=== PATIENT | female | born 1950 | race Caucasian/White ===

== ENCOUNTER 2017-01-29 07:01 | Day surgery (SDC) | payer MEDICARE, BC ==
[2017-01-28 16:06] LABS: BASOPHILS 0.4 % (0.0-2.0); EOSINOPHILS 3.6 % (0-7); HEMATOCRIT 38.2 % (36.0-48.0); HEMOGLOBIN 12.2 g/dL (12-16); IMMATURE GRANULOCYTES 0.9 % (0-5); LYMPHOCYTES 30.2 % (15-50); MCH 29.5 pg (26.0-34.0); MCHC 31.9 g/dL (31.0-37.0); MCV 92.3 fL (80.0-100.0); MEAN PLATELET VOLUME 10.5 fL (7.4-10.4); MONOCYTES 8.1 % (2-11); NEUTROPHILS 56.8 % (40-80); RBC 4.14 10x6/uL (4.00-5.40); RDW 13.2 % (11.5-14.5); WBC 5.6 10x3/uL (4.8-10.8)
[2017-01-28 16:24] LABS: PLATELET COUNT 227 10x3/uL (130-400)
[~2017-01-29] VITALS: Ht 157.5 cm; Wt 65.8 kg
--- NOTE | ~2017-01-29 | OP ---
PATIENT NAME: MARJAN BAEZA MEDICAL RECORD: [id number] :46 LOCATION:D.OPS ADMISSION DATE: SURGEON: CHRISTIAN MANCERA DPM DATE OF OPERATION: 01/29/2017 PREOPERATIVE DIAGNOSIS: Neuroma, right second and third interspace. POSTOPERATIVE DIAGNOSIS: Neuroma, right second and third interspace. PROCEDURE: Neurectomy, right second and third interspace. ANESTHESIA: Local with IV sedation utilizing lidocaine and Marcaine plain around the second, third and fourth ray of the right foot. HEMOSTASIS: Right ankle tourniquet at 250 mmHg. PREOPERATIVE DETAILS: The patient was taken to the OR and placed on the operating table in the supine position. This was followed by induction of general anesthesia and infiltration of local anesthetic. The right extremity was then prepped and draped in the usual aseptic technique, followed by exsanguination of extremity and inflation of tourniquet. PROCEDURE #1: Neurectomy, right second interspace. A 15 blade was used to create a 3 cm linear incision over the dorsal aspect of the distal right second interspace. The incision was deepened down bluntly through subcutaneous tissue through the intermetatarsal ligament and the nerve was visualized. The metatarsals were then spread with a retractor giving good visualization. The nerve was then freed from surrounding soft tissue structures. It was noted to be enlarged. It was transected as far proximally as possible as well as distally. The proper digital nerves to the second and third toe were transected as well and the specimen was removed and sent to pathology. PROCEDURE #2: Neurectomy, right third interspace. Procedure was performed as described in #1 without variation and no complication. Following the removal of the second neuroma, lidocaine with epinephrine was infiltrated into the surgical wound. The tourniquet was then deflated, there was noted to be excellent hemostasis and the wounds were closed wet with 4-0 Rapide subcutaneously and then 4-0 Rapide subcuticular to close the skin followed by Dermabond to both wounds. Adaptic, 4 x 4 and Conform were used to dress the wounds followed by Coban. POSTOPERATIVE DETAILS: The patient tolerated the procedure well and left the OR with vital signs stable and vascular status at preop levels. The patient was transported to recovery per anesthesia in stable condition. TRANSINT:[id number] Voice Confirmation ID: [id number] DOCUMENT ID: [id number] OPERATIVE REPORT [id number] MARJAN BAEZA MCKAY DPM CC: [id number] DICTATION DATE: 01/29/171106 SOAKERS SUPERVISOR: 01/29/17 183 [facility] 01/29/17 [facility] [address] [id number]
[~2017-01-29 07:01] MED LIST: COZAAR25 MG PO; LEXAPRO20 MG; NEXIUM40 MG PO; SYNTHROID75 MCG PO; VITAMIN D250000 UNIT PO; ZOCOR20 MG PO
[2017-01-29 07:51] VITALS: BP 132/77; Ht 157.5 cm; Wt 65.8 kg
--- NOTE | 2017-01-29 08:02 | NUR ---
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
--- NOTE | 2017-01-29 11:30 | NUR ---
THE PATIENT REPORTED SHE HAD PAIN TO HER LEFT KNEE PRIOR TO SURGERY. SHE REPORTS HER LEFT KNEE NOW HURTS AT AN 8. DR GUTIERREZ ADVISED AND ORDERED DILAUDID IN RECOVERY AND FOR THE PATIENT TO FOLLOW UP WITH AN ORTHO DR IF HER PAIN CONTINUED.
--- NOTE | 2017-01-29 17:35 | NUR ---
1255 CARE TURNED OVER TO AFBIEN EMERSON RN.
== END 2017-01-29 13:15 | disposition home or self-care (01) ==
LOC: D.OPS 07:01 → D.PAN 08:30 → D.OPS 08:40 → D.PAN 08:40 → D.OPS 09:15
PROVIDERS: Anesthesiology
DX: G57.81 Other specified mononeuropathies of right lower limb (principal)